=== PATIENT | female | born 1985 | race Caucasian/White ===

== ENCOUNTER 2018-04-26 14:00 | Emergency (ER) | payer OTHER ==
[~2018-04-26] VITALS: Ht 170.2 cm; Wt 61.8 kg
[2018-04-26 14:19] VITALS: BP 119/72
[2018-04-26] MEDS ORDERED: CEPH-264 PO (14:20)
--- NOTE | 2018-04-26 14:20 | PHYS DOC ---
Adult General Chief Complaint Chief Complaint: BREAST PROBLEM HPI HPI Patient is a [age] year old [sex] who presents with [] Review of Systems Review of Systems Constitutional: Denies fever or chills [] Eyes: Denies change in visual acuity, redness, or eye pain [] HENT: Denies nasal congestion or sore throat [] Respiratory: Denies cough or shortness of breath [] Cardiovascular: No additional information not addressed in HPI [] GI: Denies abdominal pain, nausea, vomiting, bloody stools or diarrhea [] : Denies dysuria or hematuria [] Musculoskeletal: Denies back pain or joint pain [] Integument: Denies rash or skin lesions [] Neurologic: Denies headache, focal weakness or sensory changes [] Endocrine: Denies polyuria or polydipsia [] All other systems were reviewed and found to be within normal limits, except as documented in this note. Physical Exam Physical Exam Constitutional: Well developed, well nourished, no acute distress, non-toxic appearance. [] HENT: Normocephalic, atraumatic, bilateral external ears normal, oropharynx moist, no oral exudates, nose normal. [] Eyes: PERRLA, EOMI, conjunctiva normal, no discharge. [] Neck: Normal range of motion, no tenderness, supple, no stridor. [] Cardiovascular:Heart rate regular rhythm, no murmur [] Lungs & Thorax: Bilateral breath sounds clear to auscultation [] Abdomen: Bowel sounds normal, soft, no tenderness, no masses, no pulsatile masses. [] Skin: Warm, dry, no erythema, no rash. [] Back: No tenderness, no CVA tenderness. [] Extremities: No tenderness, no cyanosis, no clubbing, ROM intact, no edema. [] Neurologic: Alert and oriented X 3, normal motor function, normal sensory function, no focal deficits noted. [] Psychologic: Affect normal, judgement normal, mood normal. [] EKG EKG [] Radiology/Procedures Radiology/Procedures [] Course & Med Decision Making Course & Med Decision Making Pertinent Labs and Imaging studies reviewed. (See chart for details) [] Dragon Disclaimer Dragon Disclaimer This electronic medical record was generated, in whole or in part, using a voice recognition dictation system. Departure Departure: Impression: Primary Impression: Mastitis Disposition: 01 HOME, SELF-CARE Condition: STABLE Referrals: KRISTA ANN (PCP) Patient Instructions: , Mastitis, Mastitis, [id number] Scripts Cephalexin (KEFLEX) 500 Mg Capsule 1 CAP PO QID for Mastitis, #30 CAP Prov: CYNTHIA REDDY DO 04/26/18 CYNTHIA REDDY DO Apr 26, 2018 14:20
[2018-04-26] MEDS ORDERED: CEPHALEXIN 250 MG CAPSULE PO ONE (14:45)
== END 2018-04-26 14:26 | disposition home or self-care (01) ==
LOC: ER 14:00
DX: N61.0 Mastitis without abscess (principal)
CPT/HCPCS: 99283